=== PATIENT | male | born 1955 | race Caucasian/White ===

== ENCOUNTER 2017-06-29 12:56 | Day surgery (SDC) | payer OTHER ==
[2017-06-29] MEDS ORDERED: MIDAZOLAM 1 MG/ML 2 ML INJ ×2 (15:33)
[2017-06-29] MEDS ORDERED: FENTAnyl 50 MCG/ML VIAL (15:33)
== END 2017-06-29 16:33 | disposition home or self-care (01) ==
LOC: GIL 12:56
DX: Z12.11 Encounter for screening for malignant neoplasm of colon (principal); D12.6 Benign neoplasm of colon, unspecified; K29.70 Gastritis, unspecified, without bleeding; K22.2 Esophageal obstruction; K44.9 Diaphragmatic hernia without obstruction or gangrene; E78.00 Pure hypercholesterolemia, unspecified
CPT/HCPCS: 43239; 88305; 88312; 88313